=== PATIENT | male | born 1985 | race Caucasian/White ===

== ENCOUNTER 2018-10-16 20:09 | Emergency (ER) | payer BC ==
[~2018-10-16] VITALS: Ht 182.9 cm; Wt 74.8 kg
[2018-10-16 20:10] VITALS: BP_SYST 101; BP_SYST 105; BP_DIAS 63; BP_DIAS 67
--- NOTE | 2018-10-16 20:10 | NUR ---
ED Nurse Note: Patient danita RA 62 from a restaurant c/o syncope. patient states that he drank water, felt like "water went to my lungs" and passed out. patient states that he then fell and hit his head. patient presents with 3 wounds. one on the left nose, one on the right thumb and one on the left knee. patient rates his pain a 5/10 pressure like in his head. IV started on left AC 20 gauge. labs sent down. glucose of 110
--- NOTE | 2018-10-16 20:25 | Emergency Room Report ---
History of Present Illness General Chief Complaint: Syncope Source: Patient, EMS Present Illness HPI The patient presents post loss of consciousness. It began when he drank some ice water and felt as if it entered into his lungs. His eyes rolled back and he lost consciousness and ended up hitting his nose on a chair and then getting his knee on the chair and his right thumb. He woke up soon after that it was a little bit disoriented. Observers did not see tonic clonic activity, he had no tongue injury and there was no incontinence. He complains about a mild headache at this time. He rates the pain 4/10 and generalized without radiation. The patient has had this feeling of aspiration of water with swallowing on occasion. He is never passed out before. He states it is worsened over the last 2months. He reports 3 significant episodes. His significant other states that for a long time he hits his upper chest when he is swallowing liquids. The patient has history of asthma. It has been stable. Has been off of Advair for 1 week. Not feel himself wheezing at this time. No fevers, chills, chest pain, palpitations, nausea, vomiting, diarrhea, dysuria , abdominal pain, depression. He frequently is exerting himself with rockclimbing and has no symptoms. Allergies: Coded Allergies: No Known Allergies (Unverified , 10/16/18) Patient History Past Medical History: see triage record Social History: Denies: smoking Social History Narrative [employer] student Reviewed Nursing Documentation: PMH: Agreed; PSxH: Agreed Review of Systems All Other Systems: negative except mentioned in HPI Physical Exam Vital Signs Date Time Temp Pulse Resp B/P (MAP) Pulse Ox O2 Delivery O2 Flow Rate FiO2 10/16/18 20:03 98.1 70 16 101/63 (76) 98 Room Air Sp02 EP Interpretation: reviewed, normal General Appearance: well appearing, no apparent distress, GCS 15 Head: normocephalic, other - Nose trauma Eyes: bilateral eye normal inspection, bilateral eye PERRL, bilateral eye EOMI ENT: moist mucus membranes Neck: full range of motion, supple, no bony tend Respiratory: chest non-tender, lungs clear, normal breath sounds Cardiovascular #1: regular rate, rhythm Cardiovascular #2: 2+ radial (R) Gastrointestinal: normal inspection, normal bowel sounds, non tender, no mass, non-distended Genitourinary: no CVA tenderness Musculoskeletal: back normal, gait/station normal, normal range of motion Neurologic: alert, oriented x3, plasterer spot III-XII nml as tested, motor strength/tone normal, DTRs symmetric, sensory intact, cerebellar normal, speech normal Psychiatric: mood/affect normal Skin: Ecchymosis/Bruising - Small right abdomen claims secondary to rockclimbing, laceration - Left nose, right thumb and left knee Procedures Laceration/Wound Repair Laceration/Wound Repair #1: Consent: Verbal Wound Location: face Wound Length (cm): 0 Wound Explored: clean Betadine Prep?: Yes Wound Debrided: None Wound Repaired With: Dermabond Sterile Dressing Applied?: No Patient Tolerated: Well Complications: None Laceration/Wound Repair #2: Consent: Verbal Wound Location: lower extremity - Left lateral knee Wound's Depth, Shape: superficial, flap - Circular Wound Length (cm): 3 Wound Explored: clean Irrigated w/ Saline (ccs): 30 Betadine Prep?: Yes Anesthesia: 1% Lidocaine Volume Anesthetic (ccs): 2 Wound Debrided: minimal Wound Repaired With: sutures Suture Size/Type: 5:0, proline Layer Closure?: Yes Deep Layer Suture Size/Type: 5:0, other - vicryl Sterile Dressing Applied?: Yes Splint Applied?: No Patient Tolerated: Well Complications: None Laceration/Wound Repair #3: Consent: Verbal Wound Location: upper extremity - Right thumb Wound's Depth, Shape: superficial, linear Wound Length (cm): 1 Wound Explored: clean Wound Debrided: None Suture Size/Type: 6:0, proline Sterile Dressing Applied?: Yes Splint Applied?: No Patient Tolerated: Well Complications: None Medical Decision Making Diagnostic Impression: Primary Impression: Syncope Qualified Codes: R55 - Syncope and collapse Additional Impressions: Nasal laceration Qualified Codes: S01.21XA - Laceration without foreign body of nose, initial encounter Knee laceration Qualified Codes: S81.012A - Laceration without foreign body, left knee, initial encounter Thumb laceration Qualified Codes: S61.011A - Laceration without foreign body of right thumb without damage to nail, initial encounter Dysphagia Qualified Codes: R13.10 - Dysphagia, unspecified ER Course Patient presents post syncope with nasal thumb and knee trauma. Differential includes vasovagal episode, arrhythmia, acute myocardial infarction, electrolyte abnormality, dehydration, pulmonary embolus amongst others. Exam is against pulmonary embolus. Evaluation will be with EKG, chest x-ray and labs. Also needs a nasal x-ray to exclude fracture. His asthma is not active at this time. Considerations also or for choking episode, diver [place] of the esophagus, aspiration. The patient needs sutures. In addition Tylenol will be given. EKG sinus rhythm and sinus arrhythmia. There are nonspecific ST-T wave changes. Labs unremarkable except minimally elevated CPK. Patient is not orthostatic. Chest x-ray with hyperaeration. Nasal films without fracture. Lacerations repaired. Discussed with patient the need for outpatient follow-up. As the symptoms only occur when swallowing liquids, no nerve defecation of the DMV indicated. Patient improved and stable for outpatient observation and treatment. Laboratory Tests Test 10/16/18 20:15 White Blood Count 7.8 K/UL (4.8-10.8) Red Blood Count 5.01 M/UL (4.70-6.10) Hemoglobin 15.1 G/DL (14.2-18.0) Hematocrit 44.3 % (42.0-52.0) Mean Corpuscular Volume 88 FL (80-99) Mean Corpuscular Hemoglobin 30.1 PG (27.0-31.0) Mean Corpuscular Hemoglobin Concent 34.0 G/DL (32.0-36.0) Red Cell Distribution Width 11.7 % (11.6-14.8) Platelet Count 282 K/UL (150-450) Mean Platelet Volume 5.4 FL (6.5-10.1) L Neutrophils (%) (Auto) 60.5 % (45.0-75.0) Lymphocytes (%) (Auto) 29.3 % (20.0-45.0) Monocytes (%) (Auto) 8.4 % (1.0-10.0) Eosinophils (%) (Auto) 1.6 % (0.0-3.0) Basophils (%) (Auto) 0.2 % (0.0-2.0) Urine Color Pale yellow Urine Appearance Clear Urine pH 7 (4.5-8.0) Urine Specific [place] 1.010 (1.005-1.035) Urine Protein Negative (NEGATIVE) Urine Glucose (UA) Negative (NEGATIVE) Urine Ketones 1+ (NEGATIVE) H Urine Blood Negative (NEGATIVE) Urine Nitrite Negative (NEGATIVE) Urine Bilirubin Negative (NEGATIVE) Urine Urobilinogen Normal MG/DL (0.0-1.0) Urine Leukocyte Esterase 1+ (NEGATIVE) H Urine RBC 0-2 /HPF (0 - 0) H Urine WBC 0-2 /HPF (0 - 0) Urine Squamous Epithelial Cells None /LPF (NONE/OCC) Urine Bacteria Few /HPF (NONE) Sodium Level 141 MMOL/L (136-145) Potassium Level 3.9 MMOL/L (3.5-5.1) Chloride Level 102 MMOL/L (98-107) Carbon Dioxide Level 27 MMOL/L (21-32) Anion Gap 12 mmol/L (5-15) Blood Urea Nitrogen 18 mg/dL (7-18) Creatinine 1.2 MG/DL (0.55-1.30) Estimate Glomerular Filtration Rate > 60 mL/min (>60) Glucose Level 116 MG/DL (74-106) H Calcium Level 9.3 MG/DL (8.5-10.1) Total Bilirubin 0.7 MG/DL (0.2-1.0) Aspartate Amino Transferase (AST) 22 U/L (15-37) Alanine Aminotransferase (ALT) 22 U/L (12-78) Alkaline Phosphatase 57 U/L (46-116) Total Creatine Kinase 379 U/L (26-308) H Troponin I 0.000 ng/mL (0.000-0.056) Total Protein 7.7 G/DL (6.4-8.2) Albumin 4.6 G/DL (3.4-5.0) Globulin 3.1 g/dL Albumin/Globulin Ratio 1.5 (1.0-2.7) EKG Diagnostic Results Rate: normal Rhythm: NSR ST Segments: no acute changes - Sinus arrhythmia Rhythm Strip Diag. Results EP Interpretation: yes Rhythm: NSR, no PVC's, no ectopy Chest X-Ray Diagnostic Results Chest X-Ray Diagnostic Results : Chest X-Ray Ordered: Yes # of Views/Limited/Complete: 1 View Indication: Other EP Interpretation: Yes Interpretation: no consolidation, no effusion, no pneumothorax, other - hyperaeration Impression: Other Electronically Signed by: Electronically signed by Jordan Neely MD Last Vital Signs Date Time Temp Pulse Resp B/P (MAP) Pulse Ox O2 Delivery O2 Flow Rate FiO2 10/16/18 22:40 98.2 72 16 115/72 100 Room Air Status: improved Disposition: HOME, SELF-CARE Condition: Improved Scripts Bacitracin (Bacitracin) 28.4 Gm Oint...g. 1 APPLIC TOPIC BID, #20 GM Prov: Jordan Neely MD 10/16/18 Jordan Neely MD Oct 16, 2018 20:25
[2018-10-16] MEDS: Lidocaine 1% MPF 10mg/ml 5ml INJ ONE (20:32)
[2018-10-16] MEDS: Acetaminophen 500mg (ES) tab ORAL ONE (20:33)
[2018-10-16] MEDS: Bacitracin Oint UD TOPIC ONE (20:33)
[2018-10-16 20:39] LABS: ANION GAP 12 mmol/L (5-15); BLOOD UREA NITROGEN 18 mg/dL (7-18); CALCIUM 9.3 MG/DL (8.5-10.1); CARBON DIOXIDE 27 MMOL/L (21-32); CHLORIDE 102 MMOL/L (98-107); CREATININE 1.2 MG/DL (0.55-1.30); POTASSIUM 3.9 MMOL/L (3.5-5.1); SODIUM 141 MMOL/L (136-145)
[2018-10-16 20:41] LABS: BASOPHILS % (AUTO) 0.2 % (0.0-2.0); EOSINOPHILS % (AUTO) 1.6 % (0.0-3.0); HEMATOCRIT 44.3 % (42.0-52.0); HEMOGLOBIN 15.1 G/DL (14.2-18.0); LYMPHOCYTES % (AUTO) 29.3 % (20.0-45.0); MEAN CORPUSCULAR VOLUME 88 FL (80-99); MONOCYTES % (AUTO) 8.4 % (1.0-10.0); NEUTROPHILS % (AUTO) 60.5 % (45.0-75.0); PLATELET COUNT 282 K/UL (150-450); RED BLOOD COUNT 5.01 M/UL (4.70-6.10); RED CELL DISTRIBUTION WIDTH 11.7 % (11.6-14.8); WHITE BLOOD COUNT 7.8 K/UL (4.8-10.8)
[2018-10-16 20:44] LABS: ALANINE AMINOTRANSFERASE 22 U/L (12-78); ALBUMIN 4.6 G/DL (3.4-5.0); ALBUMIN/GLOBULIN RATIO 1.5 (1.0-2.7); ALKALINE PHOSPHATASE 57 U/L (46-116); ASPARTATE AMINO TRANSFERASE 22 U/L (15-37); BILIRUBIN,TOTAL 0.7 MG/DL (0.2-1.0); CREATINE KINASE 379 U/L (26-308)
[2018-10-16 21:21] LABS: APPEARANCE,URINE CLEAR; BILIRUBIN, URINE NEGATIVE (NEGATIVE); COLOR,URINE PALE YELLOW; GLUCOSE, URINE (UA) NEGATIVE (NEGATIVE); KETONES,URINE 1+ (NEGATIVE); LEUKOCYTE ESTERASE ,URINE 1+ (NEGATIVE); NITRITE,URINE NEGATIVE (NEGATIVE); PH,URINE 7 (4.5-8.0); PROTEIN,URINE NEGATIVE (NEGATIVE); UROBILINOGEN,URINE NORMAL MG/DL (0.0-1.0)
[2018-10-16] MEDS ORDERED: BACITRACIN15 GM TOPIC (22:31)
[2018-10-16 22:40] VITALS: BP 115/72
--- NOTE | 2018-10-16 22:40 | NUR ---
ER DISCHARGE NOTE: Patient is cleared to be discharged per ERMD, pt is aox4, on room air, with stable vital signs. pt was given dc and prescription instructions, pt was able to verbalize understanding, pt id band and iv site removed without complications. pt is able to ambulate with steady gait. pt took all belongings.
--- NOTE | 2018-10-17 11:04 | Diagnostic Imaging Report ---
Indication: Trauma. Nasal trauma and pain Findings: Bilateral views of the nasal bone and a Perry' view were obtained. The examination shows no acute fracture. The paranasal sinuses as visualized appear clear. Soft tissues unremarkable. Impression: Negative nasal bone series
--- NOTE | 2018-10-17 11:08 | Diagnostic Imaging Report ---
Indication: Dyspnea Comparison: None A single view chest radiograph was obtained. Findings: Cardiomediastinal appearance is within normal limits for age. The lungs are clear. Pulmonary vascularity is appropriate. The diaphragmatic contour is smooth and costophrenic angles are sharp. No pleural effusions are identified. The bones are unremarkable. Impression: No acute findings
== END 2018-10-16 22:40 | disposition home or self-care (01) ==
LOC: EDSEX 20:09 → EDBD 20:09 → EMR 20:21
DX: R55 Syncope and collapse (principal); S01.21XA Laceration without foreign body of nose, initial encounter; S81.012A Laceration without foreign body, left knee, initial encounter; S61.011A Laceration without foreign body of right thumb without damage to nail, initial encounter; S30.1XXA Contusion of abdominal wall, initial encounter; W19.XXXA Unspecified fall, initial encounter; Y92.9 Unspecified place or not applicable; R13.10 Dysphagia, unspecified
CPT/HCPCS: 36415; 70160; 71045; 80053; 81003; 82550; 84484; 85025; 93005; 96360; 99284